=== PATIENT | male | born 1995 | race Caucasian/White ===

== ENCOUNTER 2018-07-04 11:04 | Emergency (ER) | payer OTHER, SELFPAY ==
[2018-07-04 11:04] VITALS: BP 121/77; PULSE 105; RESP 18; TEMP 36.2; O2SAT 95; BMI 22.4
--- NOTE | 2018-07-04 11:55 | CT_ITS ---
STUDY: CT ABDOMEN AND PELVIS WITHOUT CONTRAST REASON FOR EXAM: Male, 22 years old. Right flank pain. RADIATION DOSAGE (If Supplied By Facility): CTDIvol = ( 6.42 ) mGy, DLP = ( 334.98 ) mGycm TECHNIQUE: Transaxial images were obtained from the dome of the diaphragm to the symphysis pubis without oral contrast, and without intravenous contrast. Sagittal and coronal images were reconstructed. Individualized dose optimization techniques were used for this CT. COMPARISON: None. FINDINGS: Lung bases: Unremarkable. Heart: Unremarkable. Liver: Unremarkable. Gallbladder/biliary ducts: Unremarkable. Pancreas: Unremarkable. Spleen: Unremarkable. Adrenal glands: Unremarkable. Kidneys/ureters/bladder: 3 mm minimally obstructing right proximal ureteral stone (axial image 80 series 2) with minimal right hydroureteronephrosis. No additional renal stones identified. Normal left kidney. Normally left ureter. Normal urinary bladder. Prostate: Unremarkable. Large bowel/small bowel: Prominent colonic interposition with ileus. No perforation. No pneumatosis. No obstruction. No significant bowel wall thickening. Constipation. Appendix: Unremarkable (axial image 91 series 2). Gastroesophageal junction/stomach: Unremarkable. Retroperitoneum/lymph nodes: No intra-abdominal free air. No ascites. Nonspecific slightly prominent mesenteric lymph nodes scattered throughout abdomen the largest of which measures approximately 1 cm x 1.5 cm (axial image 84 series 2). Vascular: Unremarkable. Osseous structures: Unremarkable. Subcutaneous/soft tissues: Unremarkable. 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 : The above information has been verbally conveyed by Vinnie Coulter DO to Dr. Cecilia MD, on 07/04/2018 13:04:48 (ET). Electronically Signed: Vinnie Coulter DO at 13:05 EDT Tel , Service support ,
[2018-07-04 13:09] LABS: Mucous, Urine 0 SEEN /hpf (<or=2+)
[2018-07-04 13:21] LABS: Color, Urine Amber (Yellow); Glucose, Dipstick Normal (Normal); Ketone-Dipstick 50 mg/dl (Negative); Leukocyte Esterase-Dipstick 100 /ul (Negative); Nitrite-Dipstick Positive (Negative); Occult Blood-Urine 250 /ul (Negative); Protein-Dipstick 100 mg/dl (Negative); Urine Bilirubin Dipstick Negative (Negative); Urine Clarity Sl. Cloudy (Clear); Urine Urobilinogen 1 mg/dl (Normal)
[2018-07-04 13:41] LABS: Bacteria 3+ /hpf (None Seen); Red Blood Cells-Urine > 100 SEEN /hpf (0-5); Squamous Epithelial Cells - UA 0-5 SEEN /hpf (0-5); White Blood Cells 0-5 SEEN /hpf (0-5)
[2018-07-04 13:42] LABS: Amorphous Sediment 3+
--- NOTE | 2018-07-04 13:59 | ED.VISSUMM ---
- ER Visit Summary Date of Service: 07/04/18 Chief Complaint: Abdominal pain History of Present Illness: The patient is a 22 M who states that around 930 this morning he was in bed. He rolled over and stretched and had a severe pain in the right side of his abdomen. It progressively got worse but is now gone. He went to urgent care was referred here. He thinks he may have had a kidney stone in the past. He knows his dad has kidney stones. No nausea vomiting. Normal bowel movements. No fevers. Physical Examination: Afebrile vital signs are stable Gen: Well-nourished well-developed Head: Normocephalic atraumatic Eyes: Perrl EOMI ENT: TMs clear no rhinorrhea moist mucous membranes Neck: Supple no lymphadenopathy no JVD nontender CVS: Regular rate rhythm no murmurs normal S1-S2 Respiratory: No distress clear to auscultation bilaterally chest nontender Abdomen: Soft nontender nondistended normal bowel sounds no masses Back: Nontender Extremity: Nontender no edema Skin: Normal color no rash Neuro: alert orientated ?3 CN II-XII intact normal strength sensation Psych: Normal affect normal mood Test Results: Urinalysis showed greater than 100 red blood cells 3+ bacteria and nitrate +0-[address] abdomen pelvis without contrast demonstrated a proximal 3 mm ureteral stone. It was noted to have some lymphadenopathy as well as chronic changes. Emergency Department Course and Treatment: I write for the patient to have Keflex and will await the urine culture. Also write for Peebles and Zofran. He is to follow-up with primary care return if worsening or concerns Impression: 1. 3 mm right sided ureterolithiasis with renal colic 2. Bacturia This note was generated with [employer] dictation software. It may contain incorrect words, spelling, and punctuation that were not noted in review of the chart prior to signing ED Disposition - Plan for ED Patient: Disposition: Home or Assisted Living Instructions: ED Stone Renal W Colic Prescriptions: Hydrocodone Bitart/Apap 5-325 [Peebles 5MG-325MG] 1 - 2 tab PO Q6H PRN PRN 3 Days #12 tab PRN Reason: Pain Ondansetron [Zofran Odt] 4 mg PO Q8H PRN PRN #10 tab PRN Reason: Nausea Cephalexin [Keflex] 500 mg PO Q6 #20 cap Referrals: Jamal Talbot MD [Primary Care Provider] - 3-5 Days
--- NOTE | 2018-07-04 14:03 | ED.DCSUM_ITS ---
- ER Visit Summary Date of Service: 07/04/18 Chief Complaint: Abdominal pain History of Present Illness: The patient is a 22 M who states that around 930 this morning he was in bed. He rolled over and stretched and had a severe pain in the right side of his abdomen. It progressively got worse but is now gone. He went to urgent care was referred here. He thinks he may have had a kidney stone in the past. He knows his dad has kidney stones. No nausea vomiting. Normal bowel movements. No fevers. Physical Examination: Afebrile vital signs are stable Gen: Well-nourished well-developed Head: Normocephalic atraumatic Eyes: Perrl EOMI ENT: TMs clear no rhinorrhea moist mucous membranes Neck: Supple no lymphadenopathy no JVD nontender CVS: Regular rate rhythm no murmurs normal S1-S2 Respiratory: No distress clear to auscultation bilaterally chest nontender Abdomen: Soft nontender nondistended normal bowel sounds no masses Back: Nontender Extremity: Nontender no edema Skin: Normal color no rash Neuro: alert orientated ?3 CN II-XII intact normal strength sensation Psych: Normal affect normal mood Test Results: Urinalysis showed greater than 100 red blood cells 3+ bacteria and nitrate +0-[address] abdomen pelvis without contrast demonstrated a proximal 3 mm ureteral stone. It was noted to have some lymphadenopathy as well as chronic changes. Emergency Department Course and Treatment: I write for the patient to have Keflex and will await the urine culture. Also write for Sandy and Zofran. He is to follow-up with primary care return if worsening or concerns Impression: 1. 3 mm right sided ureterolithiasis with renal colic 2. Bacturia This note was generated with [employer] dictation software. It may contain incorrect words, spelling, and punctuation that were not noted in review of the chart prior to signing ED Disposition - Plan for ED Patient: Disposition: Home or Assisted Living Instructions: ED Stone Renal W Colic Prescriptions: Hydrocodone Bitart/Apap 5-325 [Sandy 5MG-325MG] 1 - 2 tab PO Q6H PRN PRN 3 Days #12 tab PRN Reason: Pain Ondansetron [Zofran Odt] 4 mg PO Q8H PRN PRN #10 tab PRN Reason: Nausea Cephalexin [Keflex] 500 mg PO Q6 #20 cap Referrals: Jamal Talbot MD [Primary Care Provider] - 3-5 Days
[2018-07-04 14:21] VITALS: BP 115/81; PULSE 60; RESP 16; O2SAT 97
[2018-07-04 14:24] VITALS: BP 115/81; PULSE 60; RESP 16; O2SAT 97
== END 2018-07-04 14:24 | disposition home or self-care (01) ==
PROVIDERS: Emergency Provider Emergency Medicine; Family Provider Family Medicine; PCP Family Medicine
DX: N20.1 Calculus of ureter (principal); R82.71 Bacteriuria; R59.1 Generalized enlarged lymph nodes
CPT/HCPCS: 74176; 81001; 87086; 99282

== ENCOUNTER → 2020-01-28 14:18 | Outpatient (CLI) | payer OTHER, SELFPAY ==
--- NOTE | 2020-01-28 14:22 | CT_ITS ---
HISTORY: RETROMOLAR TRIGONE MASS LEFT,HAS TAKEN 2 ROUNDS OF ANTIBIOTICS, AOI MARKED WITH BB TECHNIQUE: CT images of the neck were obtained with IV contrast. A radiation dose optimization technique was used for this scan. IV Contrast dosage and agent: 75mL Isovue-300 Number of images including paperwork: [id number] COMPARISON: None FINDINGS: NASOPHARYNX: Unremarkable. SUPRAHYOID NECK: Unremarkable oropharynx, oral cavity, parapharyngeal space, and retropharyngeal space. Artifact mildly limited due to artifact from dental amalgam. No periapical lucency, distinct abscess detected. There may be minimal soft tissue thickening in the area marked by a BB on the left compared to the right, although this is not definitive. No distinct mass. Small soft tissue calcification is seen in the subcutaneous fat as the left malar region (2:81). INFRAHYOID NECK: Unremarkable larynx, hypopharynx, and supraglottis. THYROID AND SALIVARY GLANDS: Normal. LYMPH NODES: Submandibular nodes are noted bilaterally, and slightly larger on the left than the right. Small posterior triangle nodes are also noted, subtly larger on the left than the right. No definite pathologically enlarged nodes. VASCULAR STRUCTURES: Unremarkable. ORBITS: Unremarkable. PARANASAL SINUSES: No air fluid level. MASTOID AIR CELLS: Unremarkable. BONES: Unremarkable. THORACIC INLET: Clear lung apices. CT/Soft Tissue Neck WITH Contrast IMPRESSION: Possible mild soft tissue asymmetry in region of clinical concern without distinct abscess or mass. Individualized dose optimization techniques were used for this CT. at 0041 Reported and signed by: Eulalia Hoang MD Electronically Signed: Eulalia Hoang MD at 0:41 EST Tel , Service support ,
== END ==
PROVIDERS: PCP Family Medicine; Referring Provider Otolaryngology; Visit Provider Otolaryngology
DX: R22.0 Localized swelling, mass and lump, head (principal)
CPT/HCPCS: 70491; Q9967

== ENCOUNTER 2020-03-05 05:57 | Day surgery (SDC) | payer OTHER, SELFPAY ==
[2020-03-05 06:29] VITALS: BP 118/77; PULSE 85; RESP 18; TEMP 37; O2SAT 100; BMI 23.3
[2020-03-05] MEDS: Lactated Ringers 1,000 ML 100 ML IV ×2 (06:41→08:15)
--- NOTE | 2020-03-05 07:30 | LES_PTH ---
PATIENT: LISA TAVARES LOC: [facility] [place] U#:[id number] AGE/SX: 24/M ROOM: RE03/05/[address]: Dr. Salbador Eagle DDS : 1995 BED: DIS: 03/05/2020 SPEC #: [id number] RECD: 03/05/20 07:30 STATUS: MARIETTA EUGENIA #: [id number] FRANK: 03/05/20 07:[address]: Salbador Eagle DEPT: SURGICAL PATHOLOGY RECD BY: Kasey Alexander ENTERED: 03/05/20 12:03 SP TYPE: Lesion OTHR DR: Dr. Jamal Talbot MD Tissues: Mandible, NOS Procedures: Special Stain Group I Surgery Specimen Level IV GMS Stain (control) HEADER OPERATION: Extraction of impacted wisdom teeth and excision lesion PRE-OP DIAGNOSIS: Impacted teeth, lesion retromolar area left mandible TISSUE SUBMITTED: Lesion retromolar area left mandible MICROSCOPIC DIAGNOSIS Skin lesion, mucosa, retromolar left mandible, biopsy: Mild squamous acanthosis. Submucosa with chronic and non-necrotizing granulomatous inflammation. Negative for malignancy. Negative for fungal organisms. See comment. AM:michela 03/06/2020 COMMENT GMS stain with matched control is used in the evaluation of this case. MICROSCOPIC DESCRIPTION Slides are reviewed. GROSS DESCRIPTION Received in fixative is one container labeled with the patient's name and designated retromolar area left mandible lesion biopsy. The specimen consists of three irregular fragments of light mccormick soft tissue that in aggregate measure 1.7 x 0.7 x 0.2 cm. The specimen is totally submitted in one cassette. / AM:michela 03/05/20 TC:3 CPT: 82547, 11928
[2020-03-05] MEDS: Bupivacaine Mpf 0.5% 30 ML VIAL (08:30)
[2020-03-05] MEDS: Lidocaine 2% /Epi 1:100 (50ml) 50 ML Vial (08:45)
[2020-03-05 09:05] VITALS: BP 115/85; BP 118/77; PULSE 74; RESP 16; TEMP 36.2; O2SAT 94
--- NOTE | 2020-03-05 09:07 | PCM.OPRPT ---
Report of Operation Date of Procedure: 03/05/20 Pre-Operative Diagnosis: Abnormal tissue left retro molar region. Impacted teeth 1 16 17 32 Post-Operative Diagnosis: Same Surgery/Procedure Performed:: Biopsy soft tissue retro molar region left side. Removal impacted teeth 1 16 17 32 Type of Anesthesia:: General Special Medications: none Specimen's removed: Tissue left retro molar region Drains: none Estimated Blood Loss (mL): Minimal Description of Procedure: Patient identified in pre op hold area and the surgery procedure was gone over as we did in the office. Patient was placed in supine position and nasal intubation without difficulty. Patient prepped in usual manner for oral surgery. Local anesthesia administered by infiltration and blocks. Incision made over left retromolar region down to bone and full flaps elevated. The tissue was biopsied and sent for histology. At this time using the surgical bur bone was removed over the third molar and the tooth sectioned and removed. Irrigated and sutured. Attention directed to impacted tooth 16 where incision made bone removed and tooth removed. Irrigated and sutured. Going to the right hand side teeth 1 and 32 were approached with full flaps and teeth 1 and 2 and 31 and 32 were impacted under the bone. We removed the bone over teeth 1 2 31 and 32 but only teeth 1 and 32 removed. Teeth 2 and 31 may erupt. No complications noted and patient extubated and awakened and taken to recovery in stable condition. - Complications none
[2020-03-05 09:15] VITALS: BP 110/69; BP 118/77; PULSE 68; RESP 16; O2SAT 95
[2020-03-05] MEDS: Ketorolac 30 MG/ML Syringe IV (09:15)
[2020-03-05 09:30] VITALS: BP 118/77; BP 123/81; PULSE 76; RESP 16; O2SAT 97
[2020-03-05 09:44] VITALS: BP 101/86; BP 118/77; PULSE 69; RESP 18; TEMP 36.6; O2SAT 97
[2020-03-05 10:20] VITALS: BP 118/77; BP 139/75; PULSE 85; RESP 16; TEMP 36.4; O2SAT 96
== END 2020-03-05 10:35 | disposition home or self-care (01) ==
LOC: SDC 05:57 → AC 05:57
PROVIDERS: PCP Family Medicine; Referring Provider Dentist Oral and Maxillofacial Surgery; Visit Provider Dentist Oral and Maxillofacial Surgery
PROC: (CPT 41899; principal; 2020-03-05 07:15)
DX: K01.1 Impacted teeth (principal); Z20.822 Contact with and (suspected) exposure to COVID-19; L83 Acanthosis nigricans; K13.70 Unspecified lesions of oral mucosa
CPT/HCPCS: 40808; 41899; 87426; 88305; 88312; C9803; J7120; J2405

== ENCOUNTER → 2021-01-06 16:43 | Outpatient (CLI) | payer OTHER, SELFPAY ==
[2021-01-06 17:11] LABS: Absolute Lymphocyte Count 2.79 X10^3/uL (0.83-4.51); Absolute Neutrophil Count 7.4 X10^3/uL (2.0-7.7); Basophil# 0.08 X10^3/uL; Basophil% 0.7 % (0-1); Eosinophil# 0.26 X10^3/uL; Eosinophils% 2.2 % (0-5); Hematocrit 44.9 % (40-54); Hemoglobin 14.5 g/dL (13.0-16.5); Lymphocyte # 2.79 X10^3/ul (0.83-4.51); Mean Corp Hgb Conc 32.3 g/dL (32-36); Mean Corpuscular Hgb 28.6 pg (27.0-32.0); Mean Corpuscular Volume 88.6 fL (80-94); Mean Platelet Vol. 8.9 fl (6.2-12.0); Monocyte# 1.09 X10^3/uL; Monocyte% 9.4 % (0-10); NRBC Flagged by Analyzer 0 % (0-5); Neutrophil # 7.37 X10^3/uL (2.7-7.7); Neutrophil % 63.5 % (47-70); Platelet Count 496 K/mm3 (150-450); RBC Distribution Width SD 44.8 fl (35.1-43.9); Red Blood Count 5.07 M/mm3 (4.6-6.2); White Blood Count 11.6 K/mm3 (4.4-11.0)
[2021-01-06 18:02] LABS: Erythrocyte Sedimentation Rate 36 mm/hr (0-20)
== END ==
PROVIDERS: PCP Family Medicine
DX: T78.3XXA Angioneurotic edema, initial encounter (principal)
CPT/HCPCS: 36415; 83520; 85025; 85652; 86160; 86161

== ENCOUNTER 2021-05-25 15:19 | Outpatient (CLI) | payer OTHER, SELFPAY ==
[2021-05-25 16:28] LABS: Absolute Lymphocyte Count 2.42 X10^3/uL (0.83-4.51); Absolute Neutrophil Count 5.7 X10^3/uL (2.0-7.7); Basophil# 0.07 X10^3/uL; Basophil% 0.7 % (0-1); Eosinophil# 0.33 X10^3/uL; Eosinophils% 3.5 % (0-5); Hematocrit 45.1 % (40-54); Hemoglobin 14.7 g/dL (13.0-16.5); Lymphocyte # 2.42 X10^3/ul (0.83-4.51); Lymphocyte % 25.4 % (19-41); Mean Corp Hgb Conc 32.6 g/dL (32-36); Mean Corpuscular Hgb 29.9 pg (27.0-32.0); Mean Corpuscular Volume 91.7 fL (80-94); Mean Platelet Vol. 9.2 fl (6.2-12.0); Monocyte# 1.01 X10^3/uL; Monocyte% 10.6 % (0-10); NRBC Flagged by Analyzer 0 % (0-5); Neutrophil # 5.67 X10^3/uL (2.7-7.7); Neutrophil % 59.5 % (47-70); Platelet Count 483 K/mm3 (150-450); RBC Distribution Width SD 46.8 fl (35.1-43.9); Red Blood Count 4.92 M/mm3 (4.6-6.2); White Blood Count 9.5 K/mm3 (4.4-11.0)
[2021-05-25 16:46] LABS: Vitamin B12 514 pg/mL (211-911); Vitamin D,25 Hydroxy 32.4 ng/mL
[2021-05-25 16:56] LABS: ALB/GLOB Ratio 0.8 RATIO (0.9-2.4); AST(SGOT) 16 U/L (15-37); Alanine Aminotransfer ALT/SGPT 31 U/L (16-61); Albumin, Serum 3.7 g/dL (3.2-5.0); Alkaline Phosphatase 91 U/L (45-117); Anion Gap 5 (5-15); BUN 14 mg/dL (7-18); BUN/Creat Ratio 15.5 RATIO (10-20); Calcium,Total 8.9 mg/dL (8.5-10.1); Chloride 105 mmol/L (98-107); EST Glomerular Filtration Rate 109 mL/min (>60); Est Glom Filt Rate - Afr Amer 132 mL/min (>60); Ferritin 63 ng/mL (26-388); Globulin 4.5 g/dL (2.2-4.2); Glucose 88 mg/dL (74-106); Iron 44 ug/dL (65-175); Iron Binding Capacity,Total 322 ug/dL (250-450); PERCENT IRON SATURATION 13.7 % (15.0-55.0); Potassium 4.4 mmol/L (3.5-5.1); Protein, Total 8.2 g/dL (6.4-8.2); Sodium Level 138 mmol/L (136-145)
[2021-05-25 16:57] LABS: Erythrocyte Sedimentation Rate 37 mm/hr (0-20)
[2021-05-28 17:46] LABS: Angiotensin Convert Enzyme 48 U/L (14-82)
== END 2021-05-25 23:59 | disposition home or self-care (01) ==
LOC: BIMLAB 15:20
PROVIDERS: PCP Internal Medicine; Referring Provider Physician Assistant; Visit Provider Physician Assistant
DX: K13.79 Other lesions of oral mucosa (principal); R22.0 Localized swelling, mass and lump, head; G47.63 Sleep related bruxism; K13.1 Cheek and lip biting
CPT/HCPCS: 36415; 80053; 82164; 82306; 82607; 82728; 82746; 83540; 83550; 85025; 85652; 86140